=== PATIENT | female | born 1970 | race Caucasian/White ===

== ENCOUNTER 2017-09-14 09:57 | Outpatient (CLI) | payer MEDICAID | END 2017-09-14 09:58 | disposition home or self-care (01) | LOC: BICMAMMO 09:57 → EDBD 10:30 | PROVIDERS: ATTEND Physician Assistant Medical | DX: N63.20 Unspecified lump in the left breast, unspecified quadrant (principal) | CPT/HCPCS: G0206-RT; G0279 ==

== ENCOUNTER 2017-12-02 00:21 | Emergency (ER) | payer OTHER ==
[2017-12-02] MEDS ORDERED: diphenhydrAMINE 50 MG/ML VIAL ONE (00:44)
[2017-12-02] MEDS ORDERED: Prochlorperazine 10 MG/2 ML VIAL ONE (00:44)
[2017-12-02] MEDS ORDERED: methylPREDNISolone Sod Succ/PF 125 MG/2 ML VIAL ONE (00:44)
== END 2017-12-02 02:00 | disposition home or self-care (01) ==
LOC: SCSER 00:21
DX: G43.909 Migraine, unspecified, not intractable, without status migrainosus (principal); I10 Essential (primary) hypertension; E78.00 Pure hypercholesterolemia, unspecified; F41.9 Anxiety disorder, unspecified; F32.9 Major depressive disorder, single episode, unspecified; F17.210 Nicotine dependence, cigarettes, uncomplicated; Z79.899 Other long term (current) drug therapy
CPT/HCPCS: 96365; 96375; J0780; J1200; J2930

== ENCOUNTER 2020-07-09 06:37 | Outpatient (CLI) | payer BC ==
[2020-07-09 13:12] LABS: #Basophils 0.1 10x3/uL (0.0-0.2); #Eosinphils 0.3 10x3/uL (0.0-0.5); #Monocytes 0.5 10x3/uL (0.0-1.1); #Neutrophils 4.2 10x3/uL (1.5-8.4); %Basophils 1.4 % (0.0-2.0); %Eosinophils 3.7 % (0.0-6.0); %Lymphocytes 34.9 % (18.0-47.0); %Monocytes 6.1 % (0.0-10.0); %Neutrophils 53.6 % (40.0-75.0); Hemoglobin 13.2 g/dL (12.0-16.0); Mean Corpuscular Hemoglobin 32.4 PG (27.0-33.0); Mean Corpuscular Volume 98.3 fl (80.0-100.0); Mean Platelet Volume 11.6 fl (7.4-10.4); Platelet Count 251 10x3/uL (130-400); RBC Distribution Width 12.6 % (11.5-14.5); Red Blood Cell (RBC) Count 4.07 10x6/uL (3.90-5.20); White Blood Cell (WBC) Count 7.9 10x3/uL (4.5-11.0)
[2020-07-09 13:18] LABS: Anion Gap 14 mmol/L (10-20); BUN (Urea Nitrogen) 14 mg/dL (7.0-18.7); Calc. Creatinine Clearance 0 mL/min (70-130); Calcium 9.5 mg/dL (7.8-10.44); Carbon Dioxide 25 mmol/L (22-29); Chloride 106 mmol/L (98-107); Estimated GFR-MDRD 71; Glucose 81 mg/dL (70-105); Sodium 140 mmol/L (136-145)
[2020-07-09 22:56] LABS: SARS-CoV-2 MS2 Positive; SARS-CoV-2 N Gene Negative; SARS-CoV-2 S Gene Negative; SARS-CoV-2 by NAA Not Detected (NotDetected); SARS-CoV-2 orf1ab Negative
== END 2020-07-09 06:38 | disposition home or self-care (01) ==
LOC: LABBT 06:37
PROVIDERS: ATTEND Specialist
DX: Z01.818 Encounter for other preprocedural examination (principal); Z20.828 Contact with and (suspected) exposure to other viral communicable diseases; N63.20 Unspecified lump in the left breast, unspecified quadrant
CPT/HCPCS: 80048; 85025; 87635; 93005; 93010; U0003

== ENCOUNTER 2020-07-14 09:00 | Day surgery (SDC) | payer BC ==
[2020-07-13 11:17] VITALS: BMI 30.7
[2020-07-14] MEDS ORDERED: Acetaminophen 500 MG TAB ONE (09:28)
[2020-07-14] MEDS ORDERED: Levofloxacin 500 mg/D5W 100 ml Premix Bag ONE (09:29)
[2020-07-14] MEDS ORDERED: Ketorolac Tromethamine 30 MG/ML VIAL ONE (09:29)
[2020-07-14] MEDS ORDERED: Rocuronium Bromide 10 MG/ML (10ML VIAL) ONE (09:36)
[2020-07-14] MEDS ORDERED: PROPOFOL 200 MG/20 ML VIAL ONE (09:36)
[2020-07-14] MEDS ORDERED: Succinylcholine 200 MG/10 ml SYRINGE FS ONE (09:36)
[2020-07-14] MEDS ORDERED: Ondansetron PF 4 MG/2 ML Vial ONE (09:36)
[2020-07-14] MEDS ORDERED: Fentanyl 100 MCG/2 ML VIAL ONE ×2 (10:51→12:18)
[2020-07-14] MEDS ORDERED: Midazolam HCl 2 mg/2 ml Vial ONE (10:51)
[2020-07-14] MEDS ORDERED: Bupivacaine 0.25% HCL 30 ML VIAL ONE (10:53)
[2020-07-14] MEDS ORDERED: Lidocaine 1% w/Epinephrine 1:100K 20 ML VIAL ONE (10:53)
--- NOTE | 2020-07-14 13:14 | OP ---
DATE OF PROCEDURE: 07/14/2020 PREOPERATIVE DIAGNOSIS: Left breast mass. POSTOPERATIVE DIAGNOSIS: Left breast mass. PROCEDURE PERFORMED: Ultrasound-guided left breast mass needle localization, left breast needle localized lumpectomy. ANESTHESIA: General endotracheal. INDICATIONS: The patient is a 49-year-old female who presented with a left breast abnormality on mammography. This was visualized on ultrasound as a hypoechoic lesion in the deep lateral left breast. I performed a needle biopsy on this in my office with benign findings. However, I was concerned that this could be discordant and I was concerned with the ultrasonographic appearance of this and I recommended completion excisional biopsy. She was taken to the operating room at this time for this purpose. DESCRIPTION OF PROCEDURE: Informed consent was obtained. The patient taken to the operating room, where general anesthesia obtained with the patient in supine position. Left breast was prepped with ChloraPrep and draped in sterile fashion. Ultrasound was utilized to identify the lesion in the lateral left breast approximately in the 2'o clock radian. The location of the lesion was marked on the skin in a grid type fashion. Then using ultrasound guidance, I passed a localizing needle through the lesion in a medial to lateral fashion. Local anesthetic was infiltrated using 0.25% Marcaine with epinephrine. A transverse incision was created based on needle insertion site. Dissection was carried into the breast. I utilized ultrasound to check margins as I proceeded. I raised flaps medially, inferiorly and superiorly. The tissue into which the needle entered was grasped with an Allis clamp, and this specimen was sharply dissected off the underlying pectoral fascia. It was removed with the wire intact within the specimen. The specimen was tagged with suture for orientation and submitted for specimen mammography. This revealed that the biopsy clip was present within the lesion. The wound was then closed in layers using 3-0 and 4-0 Monocryl suture. Additional local anesthetic was instilled within the wound. Dermabond was placed externally. There were no complications. The patient tolerated the procedure well and was taken to recovery in stable condition. Job ID: [id number]
== END 2020-07-14 13:45 | disposition home or self-care (01) ==
LOC: SDC 09:00
PROVIDERS: ATTEND Specialist
PROC: 0HBU0ZZ Excision of Left Breast, Open Approach (ICD-10-PCS; principal; 2020-07-14)
DX: N60.22 Fibroadenosis of left breast (principal); N60.82 Other benign mammary dysplasias of left breast; I10 Essential (primary) hypertension; E78.5 Hyperlipidemia, unspecified; K21.9 Gastro-esophageal reflux disease without esophagitis; G43.909 Migraine, unspecified, not intractable, without status migrainosus; F17.210 Nicotine dependence, cigarettes, uncomplicated; Z79.899 Other long term (current) drug therapy; Z88.0 Allergy status to penicillin; Z88.6 Allergy status to analgesic agent; Z88.8 Allergy status to other drugs, medicaments and biological substances
CPT/HCPCS: 76098; 88307; 88341; 88342; J1885; J1956; J2250; J2405; J2704; J3010; S0020

== ENCOUNTER 2024-05-14 11:13 | Outpatient (CLI) | payer BC ==
[2024-05-14 12:22] LABS: #Basophils 0.08 10x3/uL (0.0-0.2); %Basophils 1.1 % (0.0-1.0); %Eosinophils 2.6 % (0.0-10.0); %Lymphocytes 28.3 % (21.0-51.0); %Monocytes 4.4 % (0.0-10.0); %Neutrophils 63.2 % (42.0-75.0); Hematocrit 38.1 % (36.0-47.0); Hemoglobin 12.2 g/dL (12.0-16.0); Mean Corpuscular Hemoglobin 31.6 pg (27.0-31.0); Mean Corpuscular Volume 98.7 fL (78.0-98.0); Mean Platelet Volume 10.4 fL (7.4-10.4); Platelet Count 286 10x3/uL (130-400); RBC Distribution Width 12.3 % (11.5-14.5); Red Blood Cell (RBC) Count 3.86 mill/uL (4.20-5.40)
[2024-05-14 12:32] LABS: Bacteria/HPF None Seen HPF (None Seen); Bilirubin Negative (Negative); Blood, Urine Negative (Negative); Clarity Clear (Clear); Glucose, Urine (Dipstick) Normal (Negative); Ketone, Urine Negative (Negative); Leukocyte 25 Leu/uL (Negative); Nitrite Negative (Negative); Protein, Urine (Dipstick) Negative (Neg-Trace); RBC/HPF 0-3 HPF (0-3); Specific Gravity, Urine 1.006 (1.002-1.036); Squamous Epithelial None Seen HPF (0-3); Urobilinogen Normal mg/dL (Less than 2); WBC/HPF 0-3 HPF (0-3)
[2024-05-14 12:38] LABS: Anion Gap 9 mmol/L (10-20); BUN (Urea Nitrogen) 11 mg/dL (9.8-20.1); Calc. Creatinine Clearance 0 mL/min (70-130); Calcium 9.4 mg/dL (7.8-10.44); Carbon Dioxide 28 mmol/L (22-29); Chloride 105 mmol/L (98-107); Estimated GFR 80; Glucose 107 mg/dL (70-105); INR-International Normal Ratio 0.9; PTT 29.9 sec (22.9-36.1); Potassium 3.7 mmol/L (3.5-5.1); Prothrombin Time 12.2 sec (12.0-14.7); Sodium 138 mmol/L (136-145)
== END 2024-05-14 11:14 | disposition home or self-care (01) ==
LOC: LABBT 11:13
PROVIDERS: ATTEND Family Medicine
DX: Z01.818 Encounter for other preprocedural examination (principal); N20.0 Calculus of kidney
CPT/HCPCS: 80048; 81001; 85025; 85610; 85730; 87086; 93005; 93010

== ENCOUNTER 2024-05-24 07:00 | Day surgery (SDC) | payer BC ==
[2024-05-14 11:43] VITALS: BMI 35.7
[2024-05-24] MEDS ORDERED: Midazolam HCl 2 mg/2 ml Vial ONE (07:21)
[2024-05-24] MEDS ORDERED: PROPOFOL 20 ML ONE (07:21)
[2024-05-24] MEDS ORDERED: fentaNYL PF 100 MCG/2 ML SYRINGE ONE (07:21)
[2024-05-24] MEDS ORDERED: LevoFLOXacin D5W 500 mg (100 mL) BAG ONE (08:04)
[2024-05-24] MEDS ORDERED: Ondansetron PF 4 MG/2 ML Vial ONE (08:52)
[2024-05-24] MEDS ORDERED: Dexamethasone 4 mg/ml Vial ONE (08:52)
[2024-05-24] MEDS ORDERED: Lidocaine 1% PF 5 ML VIAL ONE (08:52)
[2024-05-24] MEDS ORDERED: PHENYLEPHRINE-NS 100 MCG/ML 10 ML SYRINGE ONE (09:31)
[2024-05-24] MEDS ORDERED: Iopamidol 30 ML ONE (10:16)
[2024-05-24] MEDS ORDERED: Oxybutynin 5 MG TAB ONE (10:29)
[2024-05-24] MEDS ORDERED: Phenazopyridine HCl 100 MG TAB ONE (10:29)
[2024-05-24] MEDS ORDERED: fentaNYL 50 mcg/mL 1 mL Vial ONE ×4 (10:48→12:01)
[2024-05-24] MEDS ORDERED: Promethazine HCl 25 MG/ML VIAL ONE ×2 (10:48→15:44)
[2024-05-24] MEDS ORDERED: Acetaminophen/Codeine 30-300mg Tablet ONE (13:33)
[2024-05-24] MEDS ORDERED: Ondansetron ODT 4 MG TAB ONE (14:19)
== END 2024-05-24 17:08 | disposition home or self-care (01) ==
LOC: SDC 07:00
PROVIDERS: ATTEND Urology
PROC: 0TF78ZZ Fragmentation in Left Ureter, Via Natural or Artificial Opening Endoscopic (ICD-10-PCS; principal; 2024-05-24)
PROC: 0T778DZ Dilation of Left Ureter with Intraluminal Device, Via Natural or Artificial Opening Endoscopic (ICD-10-PCS; principal; 2024-05-24)
DX: N20.0 Calculus of kidney (principal); D35.01 Benign neoplasm of right adrenal gland; I10 Essential (primary) hypertension; E66.9 Obesity, unspecified; Z68.38 Body mass index [BMI] 38.0-38.9, adult; K21.9 Gastro-esophageal reflux disease without esophagitis; E78.5 Hyperlipidemia, unspecified; Z87.891 Personal history of nicotine dependence
CPT/HCPCS: C1747; C1769; C2617; J1100; J1956; J2250; J2405; J2550; J2704; J3010; Q0162; Q9967